=== PATIENT | male | born 1975 | race African-American/Black ===

== ENCOUNTER 2024-02-13 05:36 | Emergency (ER) | payer MEDICAID, OTHER ==
[~2024-02-13] VITALS: Ht 185.4 cm; Wt 154.0 kg
[~2024-02-13 05:36] MED LIST: AMOX500C2 PO; ASPI-1264 PO; ATOR20TA66 PO; HYDR12.5 PO; HYDR12.597 PO; LOSA100T58 PO; LOSA50TA64 PO
[2024-02-13] MEDS ORDERED: GEN0.3OS EACHEYE (06:49)
[2024-02-13] MEDS ORDERED: CODE10LI2 PO (06:49)
[2024-02-13 06:56] VITALS: BP 175/120; PULSE 83; RESP 18; TEMP 98; O2SAT 98
== END 2024-02-13 06:57 | disposition home or self-care (01) ==
LOC: ER 05:38
DX: B34.9 Viral infection, unspecified (principal); I10 Essential (primary) hypertension; G89.29 Other chronic pain; F12.90 Cannabis use, unspecified, uncomplicated; Z79.899 Other long term (current) drug therapy; Z86.73 Personal history of transient ischemic attack (TIA), and cerebral infarction without residual deficits
CPT/HCPCS: 99283

== ENCOUNTER 2024-05-03 19:56 | Emergency (ER) | payer MEDICAID ==
[~2024-05-03] VITALS: Ht 185.4 cm; Wt 162.7 kg
[~2024-05-03 19:56] MED LIST changes: +CODE10LI2 PO; +GEN0.3OS EACHEYE
[2024-05-03 20:03] VITALS: BP 188/139; PULSE 89; RESP 16; TEMP 98.1; O2SAT 96
== END 2024-05-03 22:21 | disposition left against medical advice (07) ==
LOC: ER 19:58
DX: I10 Essential (primary) hypertension (principal); Z76.0 Encounter for issue of repeat prescription; Z53.21 Procedure and treatment not carried out due to patient leaving prior to being seen by health care provider

== ENCOUNTER 2024-05-06 09:45 | Emergency (ER) | payer MEDICAID ==
[~2024-05-06] VITALS: Ht 185.4 cm; Wt 124.7 kg
[2024-05-06 10:06] VITALS: BP 216/127; PULSE 69; RESP 15; O2SAT 97
[2024-05-06] MEDS ORDERED: LISI40TA13 PO (11:35)
[2024-05-06] MEDS ORDERED: PANT-47 PO (11:35)
[2024-05-06] MEDS ORDERED: HYDR12.55 PO (11:35)
[2024-05-06] MEDS: cloNIDine 0.1 mg tablet PO ONE (11:53)
[2024-05-06 11:59] VITALS: TEMP 97.5
== END 2024-05-06 12:00 | disposition home or self-care (01) ==
LOC: ER 09:45
DX: I10 Essential (primary) hypertension (principal); G89.29 Other chronic pain; Z79.899 Other long term (current) drug therapy; Z86.73 Personal history of transient ischemic attack (TIA), and cerebral infarction without residual deficits
CPT/HCPCS: 99283

== ENCOUNTER 2024-11-25 18:15 | Emergency (ER) | payer MEDICAID ==
[~2024-11-25] VITALS: Ht 185.4 cm; Wt 129.9 kg
[~2024-11-25 18:15] MED LIST changes: +HYDR12.55 PO; +PANT-47 PO
[2024-11-25 18:42] VITALS: BP 141/76; PULSE 83; RESP 15; O2SAT 98
--- NOTE | 2024-11-25 19:16 | Physician Documentation ---
HPI ~ General Chief Complaint: Medication Refill Stated Complaint: MED REQUEST Time Seen by MD: 18:47 Primary Medical Doctor: EVA MACKEY History of Present Illness HPI Comments This is a 48-year-old male who works as a long-distance dump truck driver [place] who presents requesting medication refills for multiple medications as he has run out of his previously prescribed medications and is unable to get in with his primary care to refill medications in a timely manner. Patient reports no acute symptoms or concerns. Medication Reconciliation Allergies: Coded Allergies: No Known Allergies (Unverified , 11/25/24) Scheduled Amoxicillin Trihydrate (Amoxicillin), 1 CAP PO TID, (Reported) Aspirin* (Aspirin*), 325 MG PO DAILY@0830 Atorvastatin Calcium (Atorvastatin Calcium), 40 MG PO DAILY Gentamicin Sulfate (Gentak), 2 DROP EACHEYE Q6H Hydrochlorothiazide (Microzide), 12.5 MG PO DAILY Hydrochlorothiazide (Hydrochlorothiazide), 1 CAP PO DAILY Hydrochlorothiazide (Hydrochlorothiazide), 1 CAP PO DAILY Hydrochlorothiazide (Hydrochlorothiazide), 1 CAP PO DAILY Hydrochlorothiazide (Hydrochlorothiazide), 1 TAB PO DAILY Hydrochlorothiazide (Hydrochlorothiazide), 1 TAB PO DAILY Lisinopril* (Lisinopril*), 1 TAB PO DAILY Losartan Potassium (Losartan Potassium), 100 MG PO DAILY Losartan Potassium (Losartan Potassium), 1 TAB PO DAILY Losartan Potassium (Losartan Potassium), 1 TAB PO DAILY Pantoprazole Sodium (PROTONIX tablet), 1 TAB PO DAILY Pantoprazole Sodium (PROTONIX tablet), 1 TAB PO DAILY Scheduled PRN Codeine Phosphate/Guaifenesin (Guaifen-Codeine 200-20 mg/10Ml), 5-10 ML PO Q4HPRN PRN for cough and congestion Past Medical History Past Medical History: CVA/TIA/Stroke, Hypertension, Chronic Back Pain Past Surgical History: no surgical history Alcohol Use: Occasionally Drug Use: marijuana Lives with: Family Lives In: Home Occupation: employed Review of Systems ROS As stated above in the HPI, otherwise all systems are reviewed and negative. Physical Exam Physical Exam Vital Signs: Heart Rate: 83, Respiratory Rate: 15, BP: 141/76, Pulse Oximetry: 98, Weight: 129.900 Physical Exam VITALS: Reviewed and as above. GENERAL: Alert, nontoxic appearing, no apparent distress. RESPIRATORY: No increased work of breathing, no respiratory distress, speaking in full clear sentences Progress Results/Orders Results/Orders Vital Signs 11/25/24 18:42 Pulse 83 Resp 15 B/P (MAP) 141/76 Pulse Ox 98 Medical Decision Making Findings This 48-year-old male with a history of GERD and hypertension presented requesting refill of previously prescribed medications for previously listed conditions. Patient's medications will be refilled as he reports currently stable on current doses medications. Patient is otherwise well-appearing reported no other acute symptoms or concerns in his appropriate for discharge. Differential Dx:Considerations: Include: Adverse circumstances, Economic, Psychosocial, Medical services unavail., Medication refill, Medication non- compliance Departure Time of Disposition: 19:15 Disposition: HOME / SELF CARE / HOMELESS Impression: Primary Impression: Medication refill Additional Impressions: History of hypertension History of gastroesophageal reflux (GERD) Condition: Improved Discharge Instructions: Medicine Refill at the Emergency Department Additional Instructions: Please take medications as as previously prescribed. Please follow up with your primary care provider in the next few days. Please return to the emergency department for any new or worsening concerning symptoms. Referrals: NO PRIMARY CARE PROVIDER (PCP) Prescriptions Pantoprazole Sodium (PROTONIX tablet) 40 Mg Tablet.dr 1 TAB PO DAILY for 90 Days, #90 TAB 0 Refills Prov: SHERRIE SMITH 11/25/24 Hydrochlorothiazide (Hydrochlorothiazide) 12.5 Mg Tablet 1 TAB PO DAILY for 90 Days, #90 TAB 0 Refills Prov: SHERRIE SMITH 11/25/24 Lisinopril* (Lisinopril*) 40 Mg Tablet 1 TAB PO DAILY for 90 Days, #90 TAB Prov: SHERRIE SMITH 11/25/24 Education Educated: Patient Educated regarding: diagnosis, treatment, prognosis, need for follow up Signature Scribe Signature: No scribe Attestation: The note accurately reflects work and decisions made by me.APARNA Mack 11/25/24 19:53 SHERRIE SMITH Nov 25, 2024 19:16
[2024-11-25] MEDS ORDERED: PANT-47 PO (19:22)
[2024-11-25] MEDS ORDERED: LISI40TA20 PO (19:22)
[2024-11-25] MEDS ORDERED: HYDR12.55 PO (19:22)
== END 2024-11-25 19:33 | disposition home or self-care (01) ==
LOC: ER 18:16
DX: Z00.8 Encounter for other general examination (principal); Z76.0 Encounter for issue of repeat prescription; I10 Essential (primary) hypertension; K21.9 Gastro-esophageal reflux disease without esophagitis; Z86.73 Personal history of transient ischemic attack (TIA), and cerebral infarction without residual deficits
CPT/HCPCS: 99281